=== PATIENT | female | born 1980 | race Caucasian/White ===

== ENCOUNTER 2019-01-19 01:07 | Emergency (ER) | payer MEDICAID ==
[2019-01-19] MEDS: KETOROLAC 30 MG INJ IM (01:55)
[2019-01-19] MEDS: HYDROCODONE/APAP (5/325) TAB PO (01:55)
== END 2019-01-19 02:50 | disposition home or self-care (01) ==
LOC: FTE 01:07
DX: S93.402A Sprain of unspecified ligament of left ankle, initial encounter (principal); S90.32XA Contusion of left foot, initial encounter; W10.9XXA Fall (on) (from) unspecified stairs and steps, initial encounter; Y92.9 Unspecified place or not applicable
CPT/HCPCS: 73610; 73610-RT; 73630-LT; 81025; 96372; 99284-25